=== PATIENT | female | born 1990 | race Caucasian/White ===

== ENCOUNTER 2021-01-18 08:37 | Outpatient (REF) | payer OTHER, SELFPAY ==
--- NOTE | ~2021-01-18 | US_ITS ---
EXAMINATION: US ABDOMEN LIMITED CLINICAL INFORMATION: Right upper quadrant pain. COMPARISON: None. TECHNIQUE: Real-time imaging of the right upper quadrant abdominal viscera. FINDINGS: PANCREAS: Normal. LIVER: Normal. The liver is normal in size. The liver contour is normal. Parenchymal echogenicity is normal. No focal hepatic lesion. There is no intrahepatic biliary duct dilatation seen. GALLBLADDER: Normal. The gallbladder is physiologically distended without evidence of stones, sludge, polyps, wall thickening or pericholecystic fluid. COMMON BILE DUCT: Normal in caliber measuring 0.4 cm in diameter. RIGHT KIDNEY: Normal. No hydronephrosis. No renal calculi or focal parenchymal lesions. The kidney measures 11.1 cm in maximum dimension. FREE FLUID: None. US/US abdomen limited IMPRESSION: Unremarkable limited abdominal ultrasound.
--- NOTE | ~2021-01-18 | XR_ITS ---
EXAMINATION: XR CHEST CLINICAL INFORMATION: History of nicotine dependence. COMPARISON: None TECHNIQUE: 2 views of the chest were obtained. FINDINGS: The lungs are well expanded. There is no focal consolidation, edema, or effusion. No pneumothorax. The cardiomediastinal silhouette is within normal limits. No acute osseous abnormality. XR/XR chest 2V IMPRESSION: Clear lungs.
[2021-01-18 09:44] LABS: Hematocrit 38.5 % (37-47); Hemoglobin 12.7 g/dl (12.0-16.0); Mean Corpuscular Hemoglobin 28.1 pg (27.0-33.0); Mean Corpuscular Volume 85.2 fL (80-98); Mean Platelet Volume 10.3 fL (9.4-12.3); Platelet Count 252 X10*3/uL (160-400); Red Blood Count 4.52 X10*6/uL (4.20-5.50); Red Cell Distribution Width 13.2 % (11.0-16.0); White Blood Count 11.8 X10*3/uL (4.8-10.8)
[2021-01-18 09:55] LABS: Estimated Average Glucose 103 mg/dL; Hemoglobin A1c % 5.2 %
[2021-01-18 10:03] LABS: Creatinine Urine 176.57 mg/dL; Microalbum/Creatinine Ratio Ur 4.5 ug/mg cr
[2021-01-18 10:06] LABS: Alanine Aminotransferase 16 U/L (0-31); Albumin Level 4.3 g/dL (3.5-5.0); Alkaline Phosphatase 94 U/L (39-117); Anion Gap 11 (12-20); Aspartate Amino Transferase 16 U/L (5-31); Bilirubin Total 0.4 mg/dL (0.0-1.0); Blood Urea Nitrogen 16 mg/dL (9-16); Calcium 8.8 mg/dL (8.4-10.2); Carbon Dioxide 27 mmol/L (22-29); Chloride 103 mmol/L (96-108); Cholesterol 160 mg/dL; Estimated Glomerular Filt Rate > 60; Glucose Fasting 99 mg/dL (60-99); HDL Cholesterol 53 mg/dL; LDL Cholesterol Calculated 93 mg/dl; Potassium 4.2 mmol/L (3.3-5.1); Sodium 137 mmol/L (135-145); Total Protein 7.3 g/dL (6.5-8.0); Triglycerides 73 mg/dL
[2021-01-18 10:28] LABS: TSH reflex Free T4 1.97 uIU/mL (0.32-4.0)
== END 2021-01-18 08:38 | disposition home or self-care (01) ==
LOC: HO.US 08:37
PROVIDERS: Visit Provider Physician Assistant
DX: Z13.220 Encounter for screening for lipoid disorders (principal); Z13.29 Encounter for screening for other suspected endocrine disorder; R10.11 Right upper quadrant pain; I10 Essential (primary) hypertension
CPT/HCPCS: 36415; 71046; 76705; 80053; 80061; 82043; 83036; 84443; 85027